=== PATIENT | female | born 1940 | race Caucasian/White ===

== ENCOUNTER → 2024-03-09 09:21 | Outpatient (CLI) | payer OTHER, SELFPAY ==
--- NOTE | 2024-03-09 17:39 | DI.NM.S_ITS ---
DATE OF SERVICE: 03/09/2024 NUCLEAR CARDIOLOGY MYOCARDIAL PERFUSION STUDY PROCEDURE: Exercise treadmill stress and rest myocardial perfusion imaging with gating to assess ejection fraction and regional wall motion. ORDERING PROVIDER: KUSH Tinajero. INDICATIONS: The patient is an 83-year-old female with exertional dyspnea, arm numbness, and an abnormal ECG. CARDIAC STRESS: The patient was able to exercise for a total of 3 minutes 1 second on a standard Mesfin protocol suggesting moderate to severely reduced exercise capacity with an ZOHAIB of +31%, achieving 4.6 METs. He had a normal heart rate response to exercise, achieving a maximum heart rate of 137 bpm (100% of her predicted maximum). She had a hypertensive blood pressure response to exercise with a resting blood pressure of 170/90, increasing to a maximum of 220/110. She had no chest discomfort or other anginal symptoms. Her resting ECG shows sinus rhythm with a left anterior fascicular block, but normal ST segments. There are no significant ST-segment shifts with stress. She had rare isolated PVCs but no complex ectopy. At 2 minutes of exercise at a heart rate of 128 bpm, 24.8 mCi of technetium-99m Myoview was injected and she was imaged 30 minutes later using a gated SPECT acquisition protocol. Earlier in the day while at rest, she had been injected with 12.7 mCi of technetium-99m Myoview and was imaged 15 minutes later, again using a gated SPECT acquisition protocol. FINDINGS: RAW DATA: There is fairly good myocardial tracer uptake. The lung/heart ratio is normal at 0.33 with a normal TID ratio of 0.79. QUANTITATED GATED SPECT: Post-stress ejection fraction is estimated at 88% without any focal wall motion abnormality. The resting ejection fraction is 79% with a normal resting end-diastolic volume of 78 mL. MYOCARDIAL PERFUSION SCAN: Post-stress supine images show a normal myocardial perfusion pattern without any perfusion defects. There are no prone images available to assess for diaphragmatic attenuation. The resting images show a similar perfusion pattern without any areas of improvement. IMPRESSION: 1. Normal myocardial perfusion study. 2. No evidence for myocardial ischemia or previous myocardial infarction. 3. Normal left ventricular size and systolic function without any focal wall motion abnormality. 4. Moderate to severely reduced exercise capacity with a significant hypertensive blood pressure response to exercise but no angina or ECG evidence of ischemia. She had rare isolated PVCs without complex ectopy. Lorena Weathers - DONNIE/juice/IRENE doc#: [id number]/job#: [id number] dd: 03/09/2024 16:48:00 dt: 03/09/2024 17:28:00 DICTATING /COPIES TO: Harrison Ojeda MD; JSOIAS Tinajero COPIES MNE: WADE; ; JOSIAS Tinajero
== END ==
LOC: NUCM 09:25
PROVIDERS: PCP Registered Nurse; Referring Provider Registered Nurse; Visit Provider Registered Nurse
DX: R94.31 Abnormal electrocardiogram [ECG] [EKG] (principal); R53.83 Other fatigue
CPT/HCPCS: 78452; 93017; A9502